=== PATIENT | female | born 1970 | race Caucasian/White ===

== ENCOUNTER 2022-03-06 22:10 | Emergency (ER) | payer MEDICARE ==
[2022-03-06] MEDS: Sodium Chloride 0.9% 1,000 ML IV ONE (22:45)
[2022-03-06] MEDS: Sodium Chloride 0.9% 1,000 ML ONE (22:58)
[2022-03-06 23:50] LABS: ANION GAP 14.5 mmol/L (5-15)
[2022-03-06 23:52] LABS: BARBITURATE SCREEN,URINE NEGATIVE (NEGATIVE); BENZODIAZEPINES SCREEN,URINE POSITIVE (NEGATIVE); TCA SCREEN,URINE POSITIVE (NEGATIVE); THC SCREEN,URINE 50 NG/ML NEGATIVE (NEGATIVE)
[2022-03-07] MEDS: Sodium Chloride 0.9% 1,000 ML IV ONE (00:15)
== END 2022-03-07 01:05 | disposition home or self-care (01) ==
LOC: KA.ED 22:10
DX: E86.0 Dehydration (principal); D72.828 Other elevated white blood cell count; Z88.5 Allergy status to narcotic agent
CPT/HCPCS: 36415; 71045; 80053; 80305-QW; 81001; 83605; 85025; 86140; 87040; 96360; 96361; 99283-25; 99284; J7030